=== PATIENT | female | born 1985 | race Caucasian/White ===

== ENCOUNTER → 2019-08-07 | Outpatient (CLI) | payer BC ==
--- NOTE | 2019-08-10 11:16 | REP ---
MRI CERVICAL SPINE WITHOUT CONTRAST: HISTORY: Radiculopathy. Headaches. Right arm and left leg numbness and tingling. No comparison cervical spine imaging. TECHNIQUE: Sagittal and axial T1- and T2-weighted scans are acquired in the usual fashion with and without fat saturation. Sequences include spin echo, turbo spin-echo, and STIR imaging sequences. FINDINGS: There is a 13 mm hemangioma in the C7 vertebral body. There straightening of the normal cervical lordosis. Cortical and medullary bone signal intensity are otherwise normal. Vertebral body heights are preserved. Craniocervical junction is unremarkable. Cervical cord is normal in coarse, caliber and signal intensity. At C3-4, there is minimal central disc bulging. No spinal stenosis or foraminal narrowing is seen. The C2-3 level is unremarkable. At the C4-5 level, there is minimal central disc bulging as well. No other finding. At C5-C6, there is also mild diffuse disc bulging effacing the ventral subarachnoid space. Neural foramen are adequate. At C6-C7 there is no significant finding. The C7-T1 level is unremarkable. IMPRESSION: Straightening and minimal disc bulging C3-4 through C5-6. No spinal stenosis or foraminal narrowing seen. Small benign hemangioma at C7. Electronically Signed by Juan Nguyen MD 08/10/2019 11:25 A
--- NOTE | 2019-08-10 11:17 | REP ---
MRI LUMBAR SPINE WITHOUT CONTRAST: HISTORY: Radiculopathy. Left leg numbness and tingling. No comparison lumbar imaging. TECHNIQUE: Sagittal and axial T1- and T2-weighted scans are acquired in the usual fashion with and without fat saturation. Sequences include spin echo, turbo spin echo, and STIR imaging sequences. MRI FINDINGS: Lumbar vertebral body heights are preserved. Alignment is normal. There is no evidence of spondylolysis or spondylolisthesis. The tip of the conus medullaris is normal in position and appearance at L1. No extra vertebral abnormality is observed. Axial and sagittal images taken at L5-S1 demonstrate mild facet hypertrophy and central disc bulging subtly indenting the ventral margin of the thecal sac. Foramina are intact. No spinal stenosis is seen. At L4-L5, there is minimal disc narrowing and decreased signal intensity. There is minimal diffuse disc bulging. No central canal stenosis or foraminal narrowing seen. At L3-4, L2-3, and L1-2, there is no significant finding. IMPRESSION: Minimal degenerative disc disease L4-5 and L5-S1 with minimal diffuse bulging. There is mild facet hypertrophy at the L5-S1. Otherwise negative. Electronically Signed by Juan Nguyen MD 08/10/2019 11:25 A
== END ==
LOC: M RAD 17:35
PROVIDERS: ATTEND Nurse Practitioner Family
DX: M54.12 Radiculopathy, cervical region (principal)

== ENCOUNTER → 2020-05-24 | Outpatient (CLI) | payer BC ==
--- NOTE | 2020-05-24 08:50 | REP ---
MRI LEFT KNEE WITHOUT CONTRAST: HISTORY: Left anterior knee pain. Knee injury. No comparison radiographs. TECHNIQUE: Axial, coronal and sagittal imaging planes utilized. T1- and T2-weighted scans were obtained in the usual fashion with and without fat saturation. MRI FINDINGS: Cortical and medullary bone signal intensity are normal. There is a minimal joint effusion and a small Bagley's cyst is seen in the posterior popliteal soft tissues. The patellar and quadriceps tendons are intact. Anterior and posterior cruciate ligaments have an intact appearance. There is no evidence of medial or lateral collateral ligament disruption. No medial or lateral meniscal tear is seen. There is a small focal partial-thickness articular cartilage defect in the lateral patellar facet centrally and mildly heterogeneous. Signal intensity is seen in the patellar articular cartilage consistent with moderate chondromalacia patella. No other articular cartilage defect is seen. IMPRESSION: Small effusion and Bagley's cyst. Moderate chondromalacia patella. No other evidence of internal derangement seen. Electronically Signed by Juan Nguyen MD 05/24/2020 01:09 P
== END ==
LOC: M RAD 06:39
PROVIDERS: ATTEND Nurse Practitioner Family
DX: M71.22 Synovial cyst of popliteal space [Baker], left knee (principal); M22.42 Chondromalacia patellae, left knee

== ENCOUNTER → 2021-07-03 | Outpatient (CLI) | payer BC ==
--- NOTE | 2021-07-03 11:43 | REP ---
INDICATION: RUQ ABD PAIN W/ NAUSEA. COMPARISON: None. TECHNIQUE/RADIOTRACER AND DOSE: 6.6 mCi of Technetium-99m mebrofenin was injected and sequential anterior images are acquired. 65 minutes after the mebrofenin injection, the patient consumed 8 ounces Ensure and an additional 60 minutes of imaging was acquired. Regions of interest are plotted around the gallbladder. FINDINGS: The initial hepatocellular parenchymal uptake phase is normal and homogeneous. Intra- and extra-hepatic bile ducts are labeled by the 10-minute image. The gallbladder is first labeled on the 15-minute image. There is normal washout from the liver parenchyma into the gallbladder and small intestine on subsequent images. The gallbladder ejection fraction is 83%. Values greater than 35% are considered normal with this technique. IMPRESSION: Normal hepatobiliary scan and normal gallbladder ejection fraction. <Electronically signed by Chuck Nguyen > 07/03/21 [id number]
== END ==
LOC: M RAD 08:47
PROVIDERS: ATTEND Physician Assistant Surgical
DX: R11.0 Nausea (principal)
CPT/HCPCS: 78227; A9537

== ENCOUNTER → 2022-03-21 | Outpatient (CLI) | payer BC | LOC: M RAD 09:01 | PROVIDERS: ATTEND Orthopaedic Surgery | DX: S83.412A Sprain of medial collateral ligament of left knee, initial encounter (principal); S83.242A Other tear of medial meniscus, current injury, left knee, initial encounter; Y92.9 Unspecified place or not applicable; Y93.9 Activity, unspecified; Y99.9 Unspecified external cause status ==